=== PATIENT | female | born 1950 | race Caucasian/White ===

== ENCOUNTER 2020-05-10 09:49 | Inpatient (IN) | payer MEDICARE, BC ==
[~2020-05-10] VITALS: Ht 165.1 cm; Wt 73.1 kg
[2020-05-10] MEDS ORDERED: TOPROL XL25 MG PO (09:54)
[2020-05-10] MEDS ORDERED: PROTONIX40 MG PO (09:54)
[2020-05-10] MEDS ORDERED: SINGULAIR10 MG PO (09:54)
[2020-05-10] MEDS ORDERED: ZOLOFT50 MG PO (09:55)
[2020-05-10] MEDS ORDERED: HCTZ25 MG PO (09:55)
[2020-05-10] MEDS ORDERED: SYNTHROID100 MCG PO (09:55)
[2020-05-10] MEDS ORDERED: BAYER CHEWABLE81 MG PO (09:56)
[2020-05-10 10:12] LABS: BASOPHILS 0 % (0-2); EOSINOPHILS 0 % (0-7); HEMATOCRIT 40.9 % (36.0-48.0); HEMOGLOBIN 13.8 g/dL (12-16); IMMATURE GRANULOCYTES 0.3 % (0-5); LYMPHOCYTES 10.8 % (15-50); MCHC 33.7 g/dL (31.0-37.0); MEAN PLATELET VOLUME 9.4 fL (7.4-10.4); MONOCYTES 7.1 % (2-11); NEUTROPHILS 81.8 % (40-80); PLATELET COUNT 210 10x3/uL (130-400); RBC 4.93 10x6/uL (4.00-5.40); RDW 13.6 % (11.5-14.5); WBC 6.9 10x3/uL (4.8-10.8)
[2020-05-10 10:20] LABS: CALC OSMOLALITY 259 mosm/kg (275-300); CALCIUM 9.1 mg/dL (8.5-10.1); CARBON DIOXIDE 26.6 mmol/L (21.0-32.0); CHLORIDE - SERUM 94 mmol/L (98-107); CREATININE - SERUM 1.1 mg/dL (0.6-1.3); GLUCOSE 100 mg/dL (74-106); POTASSIUM - SERUM 3.6 mmol/L (3.5-5.1); SODIUM 129 mmol/L (136-145); UREA NITROGEN 14 mg/dL (7-18); eGFR NON AFRICAN AMERICAN 52 mL/min (90-120)
[2020-05-10 10:22] LABS: APTT 30.5 SECONDS (22.8-39.4); INR 1.03 (0.85-1.17); PROTIME 13.5 SECONDS (11.6-15.0)
[2020-05-10 10:49] LABS: ALBUMIN 3.2 g/dL (3.4-5.0); ALKALINE PHOSPHATASE 85 U/L (30-120); ALT (SGPT) 16 U/L (10-68); BILIRUBIN - TOTAL 0.35 mg/dL (0.2-1.3); CKMB 0.6 U/L (0.0-3.6); CREATINE KINASE 70 UL (21-215); PROTEIN - SERUM 7.3 g/dL (6.4-8.2)
[2020-05-10 10:50] LABS: TROPONIN-I < 0.017 ng/mL (0.000-0.060)
[2020-05-10 11:00] VITALS: BP 118/79
[2020-05-10 11:49] LABS: BILIRUBIN NEGATIVE (NEGATIVE); KETONE MODERATE mg/dL (NEGATIVE); NITRITE NEGATIVE (NEGATIVE); UROBILINOGEN NORMAL mg/dL (< 2)
[2020-05-10 11:50] LABS: BACTERIA FEW HPF (NONE SEEN); EPITHELIAL CELLS 0-5 /hpf (0-5); WHITE CELLS - URINE 0-5 HPF (0-4)
[2020-05-10 12:54] LABS: C-REACTIVE PROTEIN 60.4 mg/dL (0.0-0.9)
[2020-05-10 13:00] VITALS: BP 122/79
[2020-05-10 13:34] LABS: ERYTHROCYTE SEDIMENTATION RATE 31 mm/hr (0-30)
[2020-05-10 15:24] VITALS: BP 129/53
[2020-05-10 16:55] VITALS: BP 137/60
[2020-05-10 18:11] VITALS: BP 131/51
--- NOTE | 2020-05-10 21:25 | NUR ---
Pt given water with ice tp drink and soda, offered turkey sandwich but declined. States " i am not hungry."
--- NOTE | 2020-05-10 21:57 | NUR ---
PT CHANGED OVER TO HOSPITAL BED NOT ER BED, VSS, AND DOCUMENTED.
[2020-05-10 21:58] VITALS: BP 132/54
--- NOTE | 2020-05-10 22:58 | NUR ---
REPORT GIVEN TO RAS CARLSON RN
[2020-05-11 01:24] VITALS: BP 134/53
[2020-05-11 06:37] VITALS: BP 123/43
[2020-05-11 07:29] LABS: BASOPHILS 0 % (0-2); EOSINOPHILS 0 % (0-7); HEMATOCRIT 38.6 % (36.0-48.0); HEMOGLOBIN 12.6 g/dL (12-16); IMMATURE GRANULOCYTES 0.5 % (0-5); LYMPHOCYTES 11.7 % (15-50); MCH 27.3 pg (26.0-34.0); MCHC 32.6 g/dL (31.0-37.0); MCV 83.7 fL (80.0-100.0); MEAN PLATELET VOLUME 9.6 fL (7.4-10.4); MONOCYTES 6.2 % (2-11); NEUTROPHILS 81.6 % (40-80); PLATELET COUNT 218 10x3/uL (130-400); RBC 4.61 10x6/uL (4.00-5.40); RDW 13.8 % (11.5-14.5); WBC 8.2 10x3/uL (4.8-10.8)
[2020-05-11 07:40] LABS: ANION GAP 0.4 mmol/L (8-16); CALCIUM 8.6 mg/dL (8.5-10.1); CARBON DIOXIDE 25.8 mmol/L (21.0-32.0); POTASSIUM - SERUM 3.2 mmol/L (3.5-5.1)
[2020-05-11 08:01] VITALS: BP 141/52
--- NOTE | 2020-05-11 08:12 | NUR ---
REPORT CALLED TO COLETTE
[2020-05-11 13:07] VITALS: BP 128/60; BMI 23.6
[2020-05-11 16:10] LABS: BILIRUBIN NEGATIVE (NEGATIVE); KETONE NEGATIVE (NEGATIVE); NITRITE NEGATIVE (NEGATIVE); UROBILINOGEN NORMAL mg/dL (< 2)
[2020-05-11 17:48] VITALS: BP 121/48
--- NOTE | 2020-05-11 18:10 | NUR ---
PT AWAKE AND OREINTED THORUGHOUT DAY. TOOK ALL MEDICATION SWITHOUT COMPLICATIONS. UP ADLIB IN ROOM, VISUALIZED PT WALKING UNASSISTED WITHOUT DIFFICULTY. COLLECTED ALL ORDERED SPECIMENS. SPOKE WITH DAUGHTER TWAN, OVERHEARD DR. NORIEGA SPEAKING WITH HER WELL. CM ALSO SPOKE WITH DAUGHTER, INFORMING HER ON WHY PTS (2137/2138) WERE UNABLE TO HAVE A LATERAL TRANSER. DAUGHTER VERBALIZED UNDERSTANDING AND ALL PARTIES APPEAR TO BE IN AGREEABLE MOODS AT THIS TIME. PT HAS NO COMPLAINTS OR CONCERNS AT THIS TIME. WILL CNT. TO MONITOR. CL INR EACH, SRX2.
[2020-05-11 19:04] LABS: ANION GAP 6.6 mmol/L (8-16); CREATININE - SERUM 1.1 mg/dL (0.6-1.3); POTASSIUM - SERUM 3.6 mmol/L (3.5-5.1)
[2020-05-11 20:45] VITALS: BP 141/62
--- NOTE | 2020-05-12 01:41 | NUR ---
NO TELEMETRY AVAILABE PER BALLET TEACHER
[2020-05-12 04:01] VITALS: BP 134/64
[2020-05-12 05:32] LABS: BASOPHILS 0.1 % (0-2); EOSINOPHILS 0 % (0-7); HEMATOCRIT 36.8 % (36.0-48.0); HEMOGLOBIN 11.9 g/dL (12-16); IMMATURE GRANULOCYTES 0.3 % (0-5); LYMPHOCYTES 6.4 % (15-50); MCH 27.3 pg (26.0-34.0); MCHC 32.3 g/dL (31.0-37.0); MCV 84.4 fL (80.0-100.0); MEAN PLATELET VOLUME 9.6 fL (7.4-10.4); MONOCYTES 4.4 % (2-11); NEUTROPHILS 88.8 % (40-80); RBC 4.36 10x6/uL (4.00-5.40); RDW 14.1 % (11.5-14.5)
[2020-05-12 05:49] LABS: PLATELET COUNT 265 10x3/uL (130-400); WBC 11.9 10x3/uL (4.8-10.8)
[2020-05-12 06:02] LABS: ALBUMIN 2.4 g/dL (3.4-5.0); ANION GAP 11.2 mmol/L (8-16); BILIRUBIN - TOTAL 0.15 mg/dL (0.2-1.3); CALCIUM 8.3 mg/dL (8.5-10.1); CARBON DIOXIDE 23.6 mmol/L (21.0-32.0); CREATININE - SERUM 0.9 mg/dL (0.6-1.3); POTASSIUM - SERUM 3.8 mmol/L (3.5-5.1); PROTEIN - SERUM 5.9 g/dL (6.4-8.2)
[2020-05-12 13:07] VITALS: BP 132/59
--- NOTE | 2020-05-12 14:14 | NUR ---
PT LYING IN BED. EYES CLOSED. CHEST RISING AND FALLING. BED LOW. CL IN REACH. WILL COTNINUE TO MONITOR.
[2020-05-12 15:25] VITALS: BP 137/56
[2020-05-12 18:23] VITALS: BP 110/55
--- NOTE | 2020-05-12 18:29 | NUR ---
SUGAR ONEIL SPIKED AND ADMINISTERED FFP. VS STABLE. STARTED FFP AT 100ML/HR THROUGH RIGHT FA 20G IV. WILL STAY WITH PT FOR FIRST 15 MIN.
[2020-05-12 18:40] VITALS: BP 139/50
[2020-05-12 20:00] VITALS: BP 133/49
--- NOTE | 2020-05-12 20:16 | NUR ---
NOTIFIED THAT PT WAS SATTING 90% ON 15L HIGH FLOW. NOTIFIED RT. TELEPHONE ORDERS FOR ABG AND TO TRANSFER PT TO [address] PT ON BIP[address]. WILL PLACE ORDER AND CTM.
--- NOTE | 2020-05-12 20:43 | MORECARE ---
CASE MANAGEMENT DISCHARGE SUMMARY PATIENT: JIMBO BUITRAGO UNIT: [id number] ADM DATE: 05/10/20 AGE: 70 : 49 SEX: F ROOM/BED: D.8440 AUTHOR: TONY CHEUNG PHYSICIAN: REFERRING PHYSICIAN: AMANDA ERAZO MD DATE OF SERVICE: 05/12/20 Discharge Plan Patient Name: JIMBO BUITRAGO Facility: [facility]:[place] : 1950 Planned Disposition: Anticipated Discharge Date: Discharge Date: Expected LOS: Initial Reviewer: [email or web address] Initial Review Date: 05/10/2020 Generated: 05/12/20 9:43 pm Comments DCP- Discharge Planning Updated by [id number]: Terri Marcial on 05/12/20 7:[address] LATE ENTRY. CONVERSATION OCCURED 05/11/20 CM RECIEVED A CALL FROM PT DAUGHTER TWAN ([phone]) WHO DEMANDS HER MOTHER AND FATHER BE SENT TO [facility] FOR A HIGHER LEVEL OF CARE. SHE STATES THEY ARE A [facility]EVEL [facility]ATMENT CENTER AND THEY HAVE ACCESS TO [facility] IF HER FAMILY REQUIRES IT. CM EDUCATED TWAN ON WHAT CONSTITUTES A HIGHER LEVEL OF CARE. SHE STATES SHE HAS DR CATES WHO WILL ACCEPT HER AND WANTS THE AMBULANCE RIDE COVERED BY INSURANCE SINCE IT IS A HIGHER LEVEL OF CARE. CM REINFORCED THAT IT IS A LATERAL TRANSFER. THE SERVICES PROVIDED TO HER PARENTS ARE THE SAME IT WOULD BE AT [facility], AND INSURANCE WILL NOT PAY FOR TRANSPORT. 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 SHE STATES SHE IS THEIR ONLY ADVOCATE IS TERRIFIED FOR THEIR LIVES. CM PROVIDED INSTRUCTION TO WHAT [facility] IS DOING CLINICALLY FOR HER FAMILY. CM ALLOWED TWAN TO VENT HER CONCERNS, WHILE PROVIDING EMOTIONAL SUPPORT. TWAN VOICED UNDERSTANDING AND WAS THANKFUL FOR THE INFORMATION PROVIDED. SHE REQUESTS THAT THE DR CALL HER FOR UPDATES. MEKHI SPOKE WITH THE NURSE PROVIDING CARE FOR THE PATIENT AND RELAYED THE REQUEST. THE NURSES STATES THAT DR ZAVALA WILL CALL AFTER HE ROUNDS ON THE PATIENT TODAY. CM TO CONTINUE ASSISTING NEEDED WITH DC PLANS/NEEDS TERRI MARCIAL Patient Name: JIMBO BUITRAGO Page [id number] at 2043 All edits/amendments must be made on the electronic document DICTATION DATE: 05/12/202042 SVP INNOVATION PARTNERSHIPS: MAMIE 05/12/202042 RPT#: [id number] DC DATE: STATUS: ADM IN [facility] [address] [place] [address] END OF REPORT
--- NOTE | 2020-05-12 21:04 | MORECARE ---
CASE MANAGEMENT DISCHARGE SUMMARY PATIENT: JIMBO BUITRAGO UNIT: [id number] ADM DATE: 05/10/20 AGE: 70 : 49 SEX: F ROOM/BED: D.6806 AUTHOR: TONY CHEUNG PHYSICIAN: REFERRING PHYSICIAN: AMANDA ERAZO MD DATE OF SERVICE: 05/12/20 Discharge Plan Patient Name: JIMBO BUITRAGO Facility: [facility]:[place] : 1950 Planned Disposition: Anticipated Discharge Date: Discharge Date: Expected LOS: Initial Reviewer: [email or web address] Initial Review Date: 05/10/2020 Generated: 05/12/20 10:04 pm Comments DCP- Discharge Planning Updated by [email or web address]: Terri Marcial on 05/12/20 7:[address] LATE ENTRY. CONVERSATION OCCURED 05/11/20 CM RECIEVED A CALL FROM PT DAUGHTER TWAN ([phone]) WHO DEMANDS HER MOTHER AND FATHER BE SENT TO [facility] FOR A HIGHER LEVEL OF CARE. SHE STATES THEY ARE A [facility]MENT CENTER AND THEY HAVE ACCESS TO [facility] IF HER FAMILY REQUIRES IT. CM EDUCATED TWAN ON WHAT CONSTITUTES A HIGHER LEVEL OF CARE. SHE STATES SHE HAS DR CATES WHO WILL ACCEPT HER AND WANTS THE AMBULANCE RIDE COVERED BY INSURANCE SINCE IT IS A HIGHER LEVEL OF CARE. CM REINFORCED THAT IT IS A LATERAL TRANSFER. THE SERVICES PROVIDED TO HER PARENTS ARE THE SAME IT WOULD BE AT [facility], AND INSURANCE WILL NOT PAY FOR TRANSPORT. 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 SHE STATES SHE IS THEIR ONLY ADVOCATE IS TERRIFIED FOR THEIR LIVES. CM PROVIDED INSTRUCTION TO WHAT [facility] IS DOING CLINICALLY FOR HER FAMILY. CM ALLOWED TWAN TO VENT HER CONCERNS, WHILE PROVIDING EMOTIONAL SUPPORT. TWAN VOICED UNDERSTANDING AND WAS THANKFUL FOR THE INFORMATION PROVIDED. SHE REQUESTS THAT THE DR CALL HER FOR UPDATES. MEKHI SPOKE WITH THE NURSE PROVIDING CARE FOR THE PATIENT AND RELAYED THE REQUEST. THE NURSES STATES THAT DR ZAVALA WILL CALL AFTER HE ROUNDS ON THE PATIENT TODAY. CM TO CONTINUE ASSISTING NEEDED WITH DC PLANS/NEEDS TERRI MARCIAL Last DP export: 05/12/20 7:43 p Patient Name: JIMBO BUITRAGO Page [phone] at 2104 All edits/amendments must be made on the electronic document DICTATION DATE: 05/12/202103 PLASTIC PARTS DESIGNER: MAMIE 05/12/202103 RPT#: [id number] DC DATE: STATUS: ADM IN [facility] [address] [place] [address] END OF REPORT
--- NOTE | 2020-05-12 21:19 | NUR ---
HAD LONG DISCUSSION WITH DAUGHTER ON PHONE ABOUT DECLINING CONDITION OF THE PATIENT AND HOW SHE PREFERS THE PATIENT TO BE TRANSFERED TO [facility]. REASSURED HER THAT I WOULD LET AND THE PRIMARY TEAM KNOW OF HER CONCERNS. WILL CTM.
[2020-05-13] VITALS (18 sets, daily range): BP systolic 132–159; BP diastolic 55–67; Ht 165.1 cm; Wt 73.1 kg
--- NOTE | 2020-05-13 00:05 | NUR ---
PATIENT AND DAUGHTER TWAN EXTREMELY APPRECIATIVE OF THE CARE PROVIDED AND KEEPING THEM IN TOUCH WITH DETAILS ON NEXT PLAN WITH THE PATIENT. DAUGHTER THANKED ME WHILE ON THE PHONE AND STATED SHE WAS VERY GLAD THAT I WAS TAKING CARE OF HER MOTHER. ENDED THE CONVERSATION ON A VERY POSITIVE NOTE. NOTIFIED TWAN AND FAMILY THAT THE PATIENT WOULD BE TRANSFERING TO 2311. FAMILY APPRECIATIVE. WILL CTM.
--- NOTE | 2020-05-13 00:28 | NUR ---
PT RECIEVED VIA BED, PLACED ON MONITOR AND ON BIPAP, HOB ELEVATED 15 DEGREES, NO DISTRESS NOTED, RIGHT PIV INTACT AND SL, WILL CONT TO MONITOR
--- NOTE | 2020-05-13 00:29 | NUR ---
PT TRANSFERED TO [facility] VIA BED. WILL CTM.
--- NOTE | 2020-05-13 03:31 | NUR ---
SPOKE WITH DAUGHTER TWAN, SHE IS REQUESTING PT TO BE TRANSFERRED TO [facility], TOLD HER I WOULD NOTIFY DR MORALES AND NOTIFY DAY SHIFT IN REPORT
[2020-05-13 05:30] LABS: BASOPHILS 0.2 % (0-2); EOSINOPHILS 0 % (0-7); HEMATOCRIT 39.6 % (36.0-48.0); HEMOGLOBIN 12.9 g/dL (12-16); IMMATURE GRANULOCYTES 0.5 % (0-5); LYMPHOCYTES 12.4 % (15-50); MCH 27.7 pg (26.0-34.0); MCHC 32.6 g/dL (31.0-37.0); MEAN PLATELET VOLUME 9.9 fL (7.4-10.4); MONOCYTES 6.7 % (2-11); NEUTROPHILS 80.2 % (40-80); PLATELET COUNT 294 10x3/uL (130-400); RBC 4.66 10x6/uL (4.00-5.40); RDW 14.4 % (11.5-14.5); WBC 9.2 10x3/uL (4.8-10.8)
[2020-05-13 06:07] LABS: ALBUMIN 2.3 g/dL (3.4-5.0); ANION GAP 14.3 mmol/L (8-16); BILIRUBIN - TOTAL 0.13 mg/dL (0.2-1.3); CALCIUM 8.5 mg/dL (8.5-10.1); CARBON DIOXIDE 23.4 mmol/L (21.0-32.0); CREATININE - SERUM 0.9 mg/dL (0.6-1.3); POTASSIUM - SERUM 3.7 mmol/L (3.5-5.1); PROTEIN - SERUM 6.1 g/dL (6.4-8.2)
--- NOTE | 2020-05-13 14:17 | MORECARE ---
CASE MANAGEMENT DISCHARGE SUMMARY PATIENT: JIMBO BUITRAGO UNIT: [id number] ADM DATE: 05/10/20 AGE: 70 : 49 SEX: F ROOM/BED: D.2311 AUTHOR: TONY CHEUNG PHYSICIAN: REFERRING PHYSICIAN: AMANDA ERAZO MD DATE OF SERVICE: 05/13/20 Discharge Plan Patient Name: JIMBO BUITRAGO Facility: [facility]:[place] : 1950 Planned Disposition: Anticipated Discharge Date: Discharge Date: Expected LOS: Initial Reviewer: [email or web address] Initial Review Date: 05/10/2020 Generated: 05/13/20 3:16 pm Comments DCP- Discharge Planning Updated by [email or web address]: Terri Marcial on 05/12/20 7:[address] LATE ENTRY. CONVERSATION OCCURED 05/11/20 CM RECIEVED A CALL FROM PT DAUGHTER TWAN ([phone]) WHO DEMANDS HER MOTHER AND FATHER BE SENT TO [facility] FOR A HIGHER LEVEL OF CARE. SHE STATES THEY ARE A [facility]REATMENT CENTER AND THEY HAVE ACCESS TO [facility] IF HER FAMILY REQUIRES IT. CM EDUCATED TWAN ON WHAT CONSTITUTES A HIGHER LEVEL OF CARE. SHE STATES SHE HAS DR CATES WHO WILL ACCEPT HER AND WANTS THE AMBULANCE RIDE COVERED BY INSURANCE SINCE IT IS A HIGHER LEVEL OF CARE. CM REINFORCED THAT IT IS A LATERAL TRANSFER. THE SERVICES PROVIDED TO HER PARENTS ARE THE SAME IT WOULD BE AT [facility], AND INSURANCE WILL NOT PAY FOR TRANSPORT. 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 SHE STATES SHE IS THEIR ONLY ADVOCATE IS TERRIFIED FOR THEIR LIVES. CM PROVIDED INSTRUCTION TO WHAT [facility] IS DOING CLINICALLY FOR HER FAMILY. CM ALLOWED TWAN TO VENT HER CONCERNS, WHILE PROVIDING EMOTIONAL SUPPORT. TWAN VOICED UNDERSTANDING AND WAS THANKFUL FOR THE INFORMATION PROVIDED. SHE REQUESTS THAT THE DR CALL HER FOR UPDATES. MEKHI SPOKE WITH THE NURSE PROVIDING CARE FOR THE PATIENT AND RELAYED THE REQUEST. THE NURSES STATES THAT DR ZAVALA WILL CALL AFTER HE ROUNDS ON THE PATIENT TODAY. CM TO CONTINUE ASSISTING NEEDED WITH DC PLANS/NEEDS TERRI MARCIAL External Providers External Provider: OTHER-OTHER Next Contact Date: Service Request Date: Service Type: Resolution: Reviewer: Comments: Last DP export: 05/12/20 8:04 p Patient Name: JIMBO BUITRAGO Page [phone] at 1417 All edits/amendments must be made on the electronic document DICTATION DATE: 05/13/201415 VANSTONE MACHINE OPERATOR: MAMIE 05/13/201415 RPT#: [id number] DC DATE: STATUS: ADM IN [facility] [address] [place] [address] END OF REPORT
--- NOTE | 2020-05-13 14:34 | MORECARE ---
CASE MANAGEMENT DISCHARGE SUMMARY PATIENT: JIMBO BUITRAGO UNIT: [id number] ADM DATE: 05/10/20 AGE: 70 : 49 SEX: F ROOM/BED: D.2311 AUTHOR: TONY CHEUNG PHYSICIAN: REFERRING PHYSICIAN: AMANDA ERAZO MD DATE OF SERVICE: 05/13/20 Discharge Plan Patient Name: JIMBO BUITRAGO Facility: [facility]:[place] : 1950 Planned Disposition: Anticipated Discharge Date: Discharge Date: Expected LOS: Initial Reviewer: [email or web address] Initial Review Date: 05/10/2020 Generated: 05/13/20 3:33 pm Comments DCP- Discharge Planning Updated by [email or web address]: Terri Marcial on 05/12/20 7:[address] LATE ENTRY. CONVERSATION OCCURED 05/11/20 CM RECIEVED A CALL FROM PT DAUGHTER TWAN ([phone]) WHO DEMANDS HER MOTHER AND FATHER BE SENT TO [place] FOR A HIGHER LEVEL OF CARE. SHE STATES THEY ARE A [facility]MENT CENTER AND THEY HAVE ACCESS TO [facility] IF HER FAMILY REQUIRES IT. CM EDUCATED TWAN ON WHAT CONSTITUTES A HIGHER LEVEL OF CARE. SHE STATES SHE HAS DR CATES WHO WILL ACCEPT HER AND WANTS THE AMBULANCE RIDE COVERED BY INSURANCE SINCE IT IS A HIGHER LEVEL OF CARE. CM REINFORCED THAT IT IS A LATERAL TRANSFER. THE SERVICES PROVIDED TO HER PARENTS ARE THE SAME IT WOULD BE AT [facility], AND INSURANCE WILL NOT PAY FOR TRANSPORT. 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 SHE STATES SHE IS THEIR ONLY ADVOCATE IS TERRIFIED FOR THEIR LIVES. CM PROVIDED INSTRUCTION TO WHAT [facility] IS DOING CLINICALLY FOR HER FAMILY. CM ALLOWED TWAN TO VENT HER CONCERNS, WHILE PROVIDING EMOTIONAL SUPPORT. TWAN VOICED UNDERSTANDING AND WAS THANKFUL FOR THE INFORMATION PROVIDED. SHE REQUESTS THAT THE DR CALL HER FOR UPDATES. MEKHI SPOKE WITH THE NURSE PROVIDING CARE FOR THE PATIENT AND RELAYED THE REQUEST. THE NURSES STATES THAT DR ZAVALA WILL CALL AFTER HE ROUNDS ON THE PATIENT TODAY. CM TO CONTINUE ASSISTING NEEDED WITH DC PLANS/NEEDS TERRI MARCIAL External Providers External Provider: OTHER-OTHER Next Contact Date: Service Request Date: Service Type: Resolution: Reviewer: Comments: Last DP export: 05/13/20 1:16 p Patient Name: JIMBO BUITRAGO Page [phone] at 1434 All edits/amendments must be made on the electronic document DICTATION DATE: 05/13/201432 DIRECTOR INTERNAL AUDIT: MAMIE 05/13/201432 RPT#: [id number] DC DATE: STATUS: ADM IN [facility] [address] [place] [address] END OF REPORT
--- NOTE | 2020-05-13 16:19 | NUR ---
SPOKE WITH CLAUDIA WALLER AT [facility] PT IS ACCEPTED TO THE ICU WAITING LIST. [phone] IS NUMBER FOR [facility] TRANSFER CENTER. NO ECMO IS AVAILABLE AT [facility]. UNSURE IF FAMILY WILL CONTINUE WITH TRANFER IF ECMO IS UNAVAILABLE.
--- NOTE | 2020-05-13 19:00 | NUR ---
REPORT RECEIVED. PT RESTING WITH OU CLOSED. CONNECTED TO [facility]IRR[facility] SPECIALIST WITH ALARM LIMITS SET. ASSESSMENT TO FOLLOW.
--- NOTE | 2020-05-13 23:00 | NUR ---
PT RESTING AND RT AT BEDSIDE. TO BE PLACED ON BIPAP ORDERED. PT REMAINS ORIENTED AND WEAK. NO CHANGE IN ASSESSMENT. CARES CONT.
[2020-05-14] VITALS (14 sets, daily range): BP systolic 120–151; BP diastolic 53–66
--- NOTE | 2020-05-14 01:00 | NUR ---
DAUGHTER TWAN CALLED UNIT FOR UPDATE. INFORMATION AND ENCOURAGEMENT GIVEN. PT MADE AWARE DAUGHTER CALLED. WILL CONT. TO MONITOR.
[2020-05-14 05:21] LABS: BASOPHILS 0.1 % (0-2); EOSINOPHILS 0 % (0-7); HEMATOCRIT 38.8 % (36.0-48.0); HEMOGLOBIN 12.5 g/dL (12-16); IMMATURE GRANULOCYTES 0.6 % (0-5); LYMPHOCYTES 7.6 % (15-50); MCH 27.5 pg (26.0-34.0); MCHC 32.2 g/dL (31.0-37.0); MCV 85.5 fL (80.0-100.0); MEAN PLATELET VOLUME 9.8 fL (7.4-10.4); MONOCYTES 8.2 % (2-11); NEUTROPHILS 83.5 % (40-80); PLATELET COUNT 279 10x3/uL (130-400); RBC 4.54 10x6/uL (4.00-5.40); RDW 14.4 % (11.5-14.5); WBC 11.1 10x3/uL (4.8-10.8)
[2020-05-14 05:46] LABS: ALBUMIN 2.3 g/dL (3.4-5.0); ALKALINE PHOSPHATASE 72 U/L (30-120); ALT (SGPT) 19 U/L (10-68); BILIRUBIN - TOTAL 0.22 mg/dL (0.2-1.3); CALCIUM 8.7 mg/dL (8.5-10.1); CARBON DIOXIDE 25.7 mmol/L (21.0-32.0); CHLORIDE - SERUM 102 mmol/L (98-107); CREATININE - SERUM 0.7 mg/dL (0.6-1.3); GLUCOSE 89 mg/dL (74-106); PROTEIN - SERUM 6.4 g/dL (6.4-8.2); SODIUM 139 mmol/L (136-145); eGFR NON AFRICAN AMERICAN 87 mL/min (90-120)
--- NOTE | 2020-05-14 06:00 | NUR ---
DAUGHTER CALLED UNIT AND STATUS UPDATE GIVEN. MOLLY FROM [facility] CALLED UNIT FOR INFORMATION ON TRANSFER PAPERS. DAY SHIFT RN TO BE MADE AWARE. CONTINUE TO WAIT FOR BED. PT INFORMED OF DAUGHTER CALLING. PT HAD GOTTEN UP TO BSC AND WAS VERY WEAK AND WAS ON 15L NRB FOR SHORT WHILE AND THEN NEEDED TO GO BACK ON BIPAP. LINEN CHANGED AND CHG BATH GIVEN. SAFETY ENSURED. CARES CONTINUE.SEE FLOWSHEET FOR FUTHUR INFO.
[2020-05-14 06:04] LABS: CALC OSMOLALITY 277 mosm/kg (275-300); POTASSIUM - SERUM 4.6 mmol/L (3.5-5.1); UREA NITROGEN 16 mg/dL (7-18)
--- NOTE | 2020-05-14 14:38 | NUR ---
PT TRANSFERRED TO [facility]. WILL CONTINUE TO MONITOR
--- NOTE | 2020-05-14 20:28 | MORECARE ---
CASE MANAGEMENT DISCHARGE SUMMARY PATIENT: JIMBO BUITRAGO UNIT: [id number] ADM DATE: 05/10/20 AGE: 70 : 49 SEX: F ROOM/BED: D.2311 AUTHOR: JONATAN,DOC PHYSICIAN: REFERRING PHYSICIAN: AMANDA ERAZO MD DATE OF SERVICE: 05/14/20 Discharge Plan Patient Name: JIMBO BUITRAGO Facility: [facility]:[place] : 1950 Planned Disposition: Anticipated Discharge Date: Discharge Date: 05/14/2020 Expected LOS: Initial Reviewer: [email or web address] Initial Review Date: 05/10/2020 Generated: 05/14/20 9:27 pm Comments DCP- Discharge Planning Updated by [email or web address]: Isabela Macdonald on 05/14/20 7:[address] Late Entry 05/13/20 CM was notified by patient's daughter that she was wanting her mother transferred to [facility] or [facility] for higher level of care - infectious disease. Daughter stated that Dr. Haji was working on the transfer this am and it had been [address] Haji to see where we was at with the transfer process. He stated that he had put the order in for transfer but had not spoken with anyone. CM contacted [facility] transfer Center and faxed face seet. CM was notified that all ICU beds are full and that they would put patient on a waiting list for transfer. CM was notified that [facility] physician has accepted patient was just waiting on Bed availability. CM then called [facility] call center and faxed facesheet and they also didn't have ICU bed availability. CM notified patient's daughter of status and that she would be notified of any changes. DCP- Discharge Planning Updated by [id number]: Terri Reyes on 05/12/20 7:[address] LATE ENTRY. CONVERSATION OCCURED 05/11/20 CM RECIEVED A CALL FROM PT DAUGHTER TWAN ([phone]) WHO DEMANDS HER MOTHER AND FATHER BE SENT TO [facility] FOR A HIGHER LEVEL OF CARE. SHE STATES THEY ARE A [facility]EVEL OE TREATMENT CENTER AND THEY HAVE ACCESS TO [facility] IF HER FAMILY REQUIRES IT. CM EDUCATED TWAN ON WHAT CONSTITUTES A HIGHER LEVEL OF CARE. SHE STATES SHE HAS DR CATES WHO WILL ACCEPT HER AND WANTS THE AMBULANCE RIDE COVERED BY INSURANCE SINCE IT IS A HIGHER LEVEL OF CARE. CM REINFORCED THAT IT IS A LATERAL TRANSFER. THE SERVICES PROVIDED TO HER PARENTS ARE THE SAME IT WOULD BE AT [facility], AND INSURANCE WILL NOT PAY FOR TRANSPORT. 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 SHE STATES SHE IS THEIR ONLY ADVOCATE IS TERRIFIED FOR THEIR LIVES. CM PROVIDED INSTRUCTION TO WHAT [facility] IS DOING CLINICALLY FOR HER FAMILY. CM ALLOWED TWAN TO VENT HER CONCERNS, WHILE PROVIDING EMOTIONAL SUPPORT. TWAN VOICED UNDERSTANDING AND WAS THANKFUL FOR THE INFORMATION PROVIDED. SHE REQUESTS THAT THE DR CALL HER FOR UPDATES. CM SPOKE WITH THE NURSE PROVIDING CARE FOR THE PATIENT AND RELAYED THE REQUEST. THE NURSES STATES THAT DR ZVAALA WILL CALL AFTER HE ROUNDS ON THE PATIENT TODAY. CM TO CONTINUE ASSISTING NEEDED WITH DC PLANS/NEEDS TERRI EDDS Last DP export: 05/13/20 1:34 p Patient Name: JIMBO BUITRAGO Page [id number] at 2027 All edits/amendments must be made on the electronic document DICTATION DATE: 05/14/202026 DATA KEYER: MAMIE 05/14/202026 RPT#: [id number] DC DATE:05/14/20 STATUS: DIS IN [facility] [address] [place] [address] END OF REPORT
--- NOTE | 2020-05-14 20:34 | MORECARE ---
CASE MANAGEMENT DISCHARGE SUMMARY PATIENT: JIMBO BUITRAGO UNIT: [id number] ADM DATE: 05/10/20 AGE: 70 : 49 SEX: F ROOM/BED: D.2311 AUTHOR: JONATAN,DOC PHYSICIAN: REFERRING PHYSICIAN: AMANDA ERAZO MD DATE OF SERVICE: 05/14/20 Discharge Plan Patient Name: JIMBO BUITRAGO Facility: [facility]:[place] : 1950 Planned Disposition: Anticipated Discharge Date: Discharge Date: 05/14/2020 Expected LOS: Initial Reviewer: [email or web address] Initial Review Date: 05/10/2020 Generated: 05/14/20 9:33 pm Comments DCP- Discharge Planning Updated by [id number]: Isabela Macdonald on 05/14/20 7:[address] CM received a call from [facility] and they had a physician that will accept patient and they had a bed available. CM notified the daughter Asha and nursing staff. Nursing to call report. CM called for transport with [facility]. [employer] [facility] of patients needs for transport. CM copied chart and got a disk of images to be sent with patient. Daughter was notified of transfer. DCP- Discharge Planning Updated by [id number]: Isabela Macdonald on 05/14/20 7:[address] Late Entry 05/13/20 CM was notified by patient's daughter that she was wanting her mother transferred to [facility] or [facility] for higher level of care - infectious disease. Daughter stated that Dr. Haji was working on the transfer this am and it had been [address] Haji to see where we was at with the transfer process. He stated that he had put the order in for transfer but had not spoken with anyone. CM contacted [facility] transfer Center and faxed face seet. CM was notified that all ICU beds are full and that they would put patient on a waiting list for transfer. CM was notified that [facility] physician has accepted patient was just waiting on Bed availability. CM then called [facility] call center and faxed facesheet and they also didn't have ICU bed availability. CM notified patient's daughter of status and that she would be notified of any changes. DCP- Discharge Planning Updated by [email or web address]: Terri Edds on 05/12/20 7:[address] LATE ENTRY. CONVERSATION OCCURED 05/11/20 CM RECIEVED A CALL FROM PT DAUGHTER ASHA ([phone]) WHO DEMANDS HER MOTHER AND FATHER BE SENT TO [facility] FOR A HIGHER LEVEL OF CARE. SHE STATES THEY ARE A LEVEL OE TREATMENT CENTER AND THEY HAVE ACCESS TO [facility] IF HER FAMILY REQUIRES IT. CM EDUCATED ASHA ON WHAT CONSTITUTES A HIGHER LEVEL OF CARE. SHE STATES SHE HAS DR CATES WHO WILL ACCEPT HER AND WANTS THE AMBULANCE RIDE COVERED BY INSURANCE SINCE IT IS A HIGHER LEVEL OF CARE. CM REINFORCED THAT IT IS A LATERAL TRANSFER. THE SERVICES PROVIDED TO HER PARENTS ARE THE SAME IT WOULD BE AT [facility], AND INSURANCE WILL NOT PAY FOR TRANSPORT. 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 SHE STATES SHE IS THEIR ONLY ADVOCATE IS TERRIFIED FOR THEIR LIVES. CM PROVIDED INSTRUCTION TO WHAT [facility] IS DOING CLINICALLY FOR HER FAMILY. CM ALLOWED ASHA TO VENT HER CONCERNS, WHILE PROVIDING EMOTIONAL SUPPORT. ASHA VOICED UNDERSTANDING AND WAS THANKFUL FOR THE INFORMATION PROVIDED. SHE REQUESTS THAT THE DR CALL HER FOR UPDATES. MEKHI SPOKE WITH THE NURSE PROVIDING CARE FOR THE PATIENT AND RELAYED THE REQUEST. THE NURSES STATES THAT DR ZAVALA WILL CALL AFTER HE ROUNDS ON THE PATIENT TODAY. CM TO CONTINUE ASSISTING NEEDED WITH DC PLANS/NEEDS TERRI ANIKET Last DP export: 05/14/20 7:28 p Patient Name: JIMBO BUITRAGO Page [id number] at 2033 All edits/amendments must be made on the electronic document DICTATION DATE: 05/14/202033 ROLLER OPERATOR: MAMIE 05/14/202033 RPT#: [id number] DC DATE:05/14/20 STATUS: DIS IN [facility] [address] [place] [address] END OF REPORT
== END 2020-05-14 14:30 | disposition short-term general hospital (02) | DRG 177 ==
LOC: D.ER 09:49 → D.M2 11:41 → D.ICU 11:41 → D.EDHOLD 11:41 → D.M2 05-11 07:39 → D.ICU 05-13 00:29
PROVIDERS: Family Medicine; Internal Medicine; ADMIT Family Medicine; ATTEND Family Medicine
PROC: XW033E5 Introduction of Remdesivir Anti-infective into Peripheral Vein, Percutaneous Approach, New Technology Group 5 (ICD-10-PCS; principal; 2020-05-13)
PROC: 5A09357 Assistance with Respiratory Ventilation, Less than 24 Consecutive Hours, Continuous Positive Airway Pressure (ICD-10-PCS; 2020-05-14)
DX: U07.1 COVID-19 (principal); J12.89 Other viral pneumonia; J96.01 Acute respiratory failure with hypoxia; E87.1 Hypo-osmolality and hyponatremia; E87.3 Alkalosis; E03.9 Hypothyroidism, unspecified; R51 Headache; E86.0 Dehydration; R31.9 Hematuria, unspecified; F32.9 Major depressive disorder, single episode, unspecified; K21.9 Gastro-esophageal reflux disease without esophagitis; I10 Essential (primary) hypertension; F41.9 Anxiety disorder, unspecified; R05 Cough; M79.10 Myalgia, unspecified site; R50.9 Fever, unspecified; R22.42 Localized swelling, mass and lump, left lower limb

== ENCOUNTER → 2020-12-29 10:39 | Outpatient (CLI) | payer MEDICARE, BC ==
[2020-05-13 12:51] VITALS: BMI 23.6
[~2020-12-29 10:39] MED LIST: BAYER CHEWABLE81 MG PO; HCTZ25 MG PO; PROTONIX40 MG PO; SINGULAIR10 MG PO; SYNTHROID100 MCG PO; TOPROL XL25 MG PO; ZOLOFT50 MG PO
== END | disposition home or self-care (01) ==
LOC: D.MRI 10:30
PROVIDERS: ATTEND Clinical Nurse Specialist Family Health
DX: M25.531 Pain in right wrist (principal); M25.511 Pain in right shoulder